=== PATIENT | female | born 1950 | race Caucasian/White ===

== ENCOUNTER 2019-02-06 13:58 | Emergency (ER) | payer MEDICARE, SELFPAY ==
[2019-02-06 14:00] VITALS: BP 110/61; PULSE 53; RESP 14; TEMP 36.8; O2SAT 99; BMI 36.0
--- NOTE | 2019-02-06 15:18 | EKG12_ITS ---
Test Reason : Blood Pressure : / mmHG Vent. Rate : 052 BPM Atrial Rate : 052 BPM P-R Int : 118 ms QRS Dur : 090 ms QT Int : 482 ms P-R-T Axes : -12 012 080 degrees QTc Int : 448 ms Sinus bradycardia with sinus arrhythmia Otherwise normal ECG Confirmed by MIRIAM LEYVA, HOLLI ([id number]), editor house organ RAIN WILEY ([id number] on 02/10/2019 11:47:34 AM Referred By: OLAMIDE Confirmed By:HOLLI PINEDA MD
--- NOTE | 2019-02-06 15:22 | ED.DCSUM_ITS ---
History of Present Illness Chief Complaint: Syncope Detail of Chief Complaint: Chief complaint is near syncope Informant: Patient Onset: Today Context: Sudden Onset Timing: Intermittent Quality: Vasovagal Location: Sitting for 15 minutes Current Severity: Mild - Reports nausea Maximum Severity: Moderate Worsened by: Nothing Relieved by: Nothing Associated Symptoms: Tunnel vision, pallor, nausea and lightheadedness. Narrative: Patient presents with near syncopal episode. She was sitting for 15 minutes when she felt nauseous, clammy and lightheaded with tunnel vision and reported pallor. Patient states this is happened several times prior to today she has no other complaints other than presently feeling nauseous she was placed on a new blood pressure medication 1 month ago. She had a 30-day event monitor for ectopy. Prior similar symptoms: Yes Recent Illness/Hospitalization: Yes - Past Medical History (1) History of hypertension Status: Acute Past Medical History - Allergies and Home Meds Allergies/Adverse Reactions: Allergies No Known Allergies Allergy (Verified 02/06/19 14:00) Primary Care Physician: Thomas Sinclair MD [Primary Care Provider] - 3-5 Days Surgical History: noncontributory Lives: Spouse/ Significant Other Smoking Status: Never smoker Alcohol: None Review of Systems General: Denies: Chills, Fever, Sweats Eyes: Reports: Visual changes - bilaterally. Denies: Blurred Vision - bilaterally, Diplopia ENT: Denies: Bilateral ear pain, Rhinorrhea, Sore throat Cardiovascular: Denies: Chest pain, Palpitations Respiratory: Denies: Dyspnea, Cough, Dyspnea on exertion Gastrointestinal: Reports: Nausea. Denies: Abdominal pain, Vomiting, Diarrhea, Melena, Hematochezia Genitourinary: Denies: Dysuria, Hematuria, Frequency Musculoskeletal: Denies: Myalgias, Arthralgias, Neck pain, Back pain, Swelling, Extremity Pain Skin: Denies: Rash, Wounds Neurological: Denies: Headache, Weakness, Numbness Hematologic: Denies: Easy bruising Allergy: Denies: Uticaria, Swelling of the mouth Physical Exam Vital Signs/Narrative: Vital Signs Temp Pulse Resp BP Pulse Ox 02/06/19 14:00 98.2 F 53 L 14 110/61 99 Inital Vital Signs reviewed: Yes General: Well nourished, Well developed, No Acute Distress Head: Normocephalic, Atraumatic Eyes: Perrl, EOMI. Negative for: Pale conjunctiva, Scleral icterus, - ENT: Moist mucous membranes, No rhinorrhea, TM's clear Neck: Supple, Nontender, No lymphadenopathy, No JVD Cardiovascular: Regular rate, Regular rhythm, No murmurs, Normal S1, Normal S2 Respiratory: No distress, CTA bilaterally, Chest nontender Abdomen: Soft, Nontender, Nondistended, Normal bowel sounds, No masses Back: Nontender, Normal Inspection Extremities: Nontender, No edema Skin: Normal color, No rash, No Trauma. Negative for: Cyanosis, Jaundice Neurological: Alert, Oriented x3, Cranial nerves II-XII grossly intact, Normal Strength, Normal Sensation, Normal DTR Psychological: Normal affect, Normal Mood Diagnostic/Tx/Re-eval Laboratory Results 02/06/19 02/06/19 15:10 15:10 WBC 6.5 RBC 3.90 L Hgb 11.8 L Hct 34.7 L MCV 89.0 MCH 30.3 MCHC 34.0 RDW 12.4 RDW Differential 39.6 Plt Count 156 MPV 12.7 H Immature Gran % (Auto) 0.200 Neut % (Auto) 71.1 H Lymph % (Auto) 19.4 [place] % (Auto) 6.3 Eos % (Auto) 2.5 Baso % (Auto) 0.5 Absolute Neuts (auto) 4.6 Absolute Lymphs (auto) 1.26 Total Counted Not Reportable Sodium 144 Potassium 3.9 Chloride 109 H Carbon Dioxide 28.0 Anion Gap 7 BUN 29 H Creatinine 1.59 H Estim Creat Clear Calc 30.05 Est GFR (MDRD) Af Amer 41 L Est GFR (MDRD) Non-Af 34 L BUN/Creatinine Ratio 18.2 Glucose 93 Calcium 8.3 L - EKG Initial EKG Interpretation: Sinus Bradycardia - Ventricular rate 52. UT interval, QRS duration, QT and axis are normal. No ST-T wave changes noted. - Medical Decision Making Initial blood pressure was low. We will perform orthostatic vital signs. Since her new blood pressure med contains hydrochlorothiazide will obtain basic metabolic panel to assess electrolytes and renal function. Since she is bradycardic we will obtain EKG to evaluate for ischemia and ectopic beats. She was placed on monitor. CBC was obtained to determine if there is a drop in H&H. Patient has mild anemia with normal indices. BUN to creatinine ratio is normal. Running is elevated. There is no history of renal insufficiency. EKG was obtained and revealed no acute ischemic changes. Orthostatic vital signs were negative and patient was not symptomatic. ED Disposition - Plan for ED Patient: Disposition: Home or Assisted Living Diagnosis: Vasovagal near-syncope Instructions: ED Near Syncope Vasovagal Referrals: Thomas Sinclair MD [Primary Care Provider] - 3-5 Days
[2019-02-06 15:32] LABS: Absolute Lymphocyte Count 1.26 X10^3/ul (0.83-4.51); Absolute Neutrophil Count 4.6 X10^3/uL (2.0-7.7); Basophil# 0.03 X10^3/uL; Basophil% 0.5 % (0-1); Eosinophil# 0.16 X10^3/uL; Eosinophils% 2.5 % (0-5); Hematocrit 34.7 % (37-47); Hemoglobin 11.8 g/dl (12.0-15.0); Lymphocyte # 1.26 X10^3/ul (4.0); Lymphocyte % 19.4 % (19-41); Mean Corpuscular Hgb 30.3 pg (27.0-32.0); Mean Platelet Vol. 12.7 fl (6.2-12.0); Monocyte# 0.41 X10^3/uL; Monocyte% 6.3 % (0-10); Neutrophil # 4.63 X10^3/uL (2.7-7.7); Neutrophil % 71.1 % (47-70); Platelet Count 156 K/mm3 (150-450); RBC Distribution Width CV 12.4 % (11.6-14.6); RBC Distribution Width SD 39.6 fl (35.1-43.9); White Blood Count 6.5 K/mm3 (4.4-11.0)
[2019-02-06 15:33] LABS: POSITIVE COUNT NO; POSITIVE DIFFERENTIAL NO; POSITIVE MORPHOLOGY NO
[2019-02-06 15:40] LABS: Anion Gap 7 (5-15); BUN 29 mg/dL (7-18); BUN/Creat Ratio 18.2 RATIO (10-20); Calcium,Total 8.3 mg/dL (8.5-10.1); Chloride 109 mmol/L (98-107); Creatinine, Serum 1.59 mg/dL (0.55-1.02); EST Glomerular Filtration Rate 34 mL/min (>60); Est Glom Filt Rate - Afr Amer 41 mL/min (>60); Estimated Creatinine Clearance 30.05 ml/min; Glucose 93 mg/dL (74-106); Potassium 3.9 mmol/L (3.5-5.1); Sodium Level 144 mmol/L (136-145)
[2019-02-06 16:37] VITALS: BP 134/63; BP 139/72; BP 140/67; PULSE 58; PULSE 61; PULSE 62
[2019-02-06 16:43] VITALS: BP 140/67; PULSE 57; RESP 18; O2SAT 98
[2019-02-06 17:05] VITALS: BP 124/83; PULSE 62; RESP 20; O2SAT 98
== END 2019-02-06 17:06 | disposition home or self-care (01) ==
PROVIDERS: Emergency Provider Emergency Medicine; Family Provider Internal Medicine; PCP Internal Medicine
DX: R55 Syncope and collapse (principal); I10 Essential (primary) hypertension
CPT/HCPCS: 80048; 85025; 93005; 99285; J7030; A4216